=== PATIENT | female | born 1935 | race Caucasian/White ===

== ENCOUNTER → 2016-10-03 | Outpatient (CLI) | payer MEDICARE, BC ==
[~2016-10-03] MED LIST: ALPHA LIPOIC A200 MG; ALTACE 10MG TAB10 MG PO; ALTACE10 MG PO; AMBIEN 10MG10 MG PO; AMITRIPTYLINE H25 M1 PO; ASPIRIN 81M81 MG/TA2 PO; CARTIA XT120 MG PO; CELEBREX 200MG200 MG PO; CETIRIZINE PO; CLOTRIMAZOLE/BE1 CRE TP; DETROL LA4 PO; FERROUSAL325 MG PO; GABAPENTIN300 M1 PO; GLUCOPHAGE XR500 M1 PO; GLUCOPHAGE500 MG/TAB PO; HCTZ 25MG TAB25 MG PO; HCTZ 25MG25 MG PO; LANTUS100 U/ML SQ; LEVEMIR FLEX100 U/ML SQ; LYRICA 75MG CAP75 MG PO; MAG-OX 400400 MG/TAB PO; METFORMIN ER500 MG PO; NEXIUM40 MG PO; NORCO 325 MG-51 TAB PO; NOVOLOG FLEX100 U/ML SQ; PATADAY 2.5 ML2.5 ML OU; PRADAXA 150MG150 MG PO; PRIL40 PO; PROMETHAZINE12.5 M5 PO; SIMVASTATIN10 MG PO; ULTRAM 50MG TAB50 MG PO; VICODIN 5/5001 UDTAB PO; VITAMIN B121000 MC2 SL; VITAMIN D 1001000 IU PO; VTAMINC250TA; WARFARIN SODIUM6 MG PO; ZOFRAN ODT4 MG PO; ZYLOPRIM 300MG300 MG PO; ZYRTEC 10MG10 MG PO
[2016-10-03 16:46] LABS: MEAN CELL VOLUME 91 fl (80.0-100.0); MEAN CORPUSCULAR HEMOGLOBIN 31 pg (27.0-31.0); MEAN CORPUSCULAR HGB CONC 34 g/dl (33.0-37.0); MEAN PLATELET VOLUME 10.7 fl (7.4-10.4); PLATELET COUNT 169 K/mm3 (130-400); RED BLOOD COUNT 4.53 M/mm3 (4.10-5.30); REDCELL DISTRIBUTION WIDTH-CV 13.7 % (11.5-14.5); WHITE BLOOD COUNT 6.1 K/mm3 (4.8-10.8)
[2016-10-03 18:39] LABS: ERYTHROCYTE SEDIMENTATION RATE 15 mm/hr (0-30)
== END ==
LOC: COL.LAB 16:00
PROVIDERS: Orthopaedic Surgery
DX: M25.561 Pain in right knee (principal)

== ENCOUNTER 2016-12-17 14:56 | Outpatient (CLI) | payer MEDICARE, BC ==
[~2016-12-17] VITALS: Ht 180.3 cm; Wt 104.5 kg
[~2016-12-17 14:56] MED LIST changes: -DETROL LA4 PO
[2016-12-17] MEDS ORDERED: DETROL LA4 PO (15:44)
[2016-12-17 15:47] VITALS: BP 151/94; PULSE 70; TEMP 98
== END 2016-12-17 16:32 | disposition home or self-care (01) ==
LOC: EUO 14:56
DX: M85.80 Other specified disorders of bone density and structure, unspecified site (principal)
CPT/HCPCS: J3489

== ENCOUNTER → 2017-07-22 | Outpatient (CLI) | payer MEDICARE, BC ==
[~2017-07-22] MED LIST changes: +DETROL LA4 PO
== END ==
LOC: COL.RAD 09:00
DX: I63.9 Cerebral infarction, unspecified (principal); G31.9 Degenerative disease of nervous system, unspecified; I67.82 Cerebral ischemia
CPT/HCPCS: A9585

== ENCOUNTER → 2017-08-11 | Outpatient (REF) ==
[~2017-08-11] MED LIST changes: +B-121000 MCG PO; +COREG 3.123.125 MG/T PO; +ELIQUIS 5MG PO; +FOLIC ACID 11 MG/TA1 PO; +LIPITOR 80MG80 MG PO
== END ==
LOC: ZCOL.LAB 12:14
DX: K21.9 Gastro-esophageal reflux disease without esophagitis (principal)